=== PATIENT | female | born 1935 | race Caucasian/White ===

== ENCOUNTER 2017-12-29 20:32 | Inpatient (IN) | payer OTHER ==
[~2017-12-29] VITALS: Ht 160 cm; Wt 70.3 kg
[~2017-12-29 20:32] MED LIST: ATORVASTATIN CA40 M1 PO; JANUVIA100 M1 PO; LIPITOR20 M2 PO; METFORMIN HCL500 M4 PO; METOPROLOL SUCC25 M1 PO; TUMS200 MG PO; VITAMIN D2000 UNIT PO; ZANTAC150 M1 PO
[2017-12-29 21:51] LABS: ABSOLUTE BASOPHIL COUNT 0 /CUMM (0.0-0.2); ABSOLUTE EOSINOPHIL COUNT 0 /CUMM (0.0-0.7); ABSOLUTE GRANULOCYTE CT 8.2 /CUMM (1.4-6.5); ABSOLUTE MONOCYTE COUNT 0.6 /CUMM (0.10-0.60); BASOPHIL % 0.1 % (0.0-2.0); EOSINOPHIL % 0.1 % (0-5); GRANULOCYTE % 83.2 % (42.2-75.2); HEMATOCRIT 39.2 % (37-47); MEAN CORPUSCULAR HGB 30.5 PG (27.0-31.0); MEAN CORPUSCULAR HGB CONC 33.8 G/DL (33.0-37.0); MEAN CORPUSCULAR VOLUME 90.3 FL (81.0-99.0); MEAN PLATELET VOLUME 8.1 FL (7.4-10.4); PLATELET COUNT 181 /CUMM (130-400); RED BLOOD CELL CT 4.34 /CUMM (4.20-5.40); WHITE BLOOD CELL COUNT 9.9 /CUMM (4.8-10.8)
--- NOTE | 2017-12-29 22:00 | ED AMS/SEIZURE/WEAK/DIZZY ---
History of Present Illness General Chief Complaint: General Adult Stated Complaint: "FLUID IN LEGS,SHAKEY, WEAK" Source: patient, family Exam Limitations: no limitations Vital Signs & Intake/Output Vital Signs & Intake/Output Vital Signs Date Time Temp Pulse Resp B/P B/P Pulse O2 O2 Flow FiO2 Mean Ox Delivery Rate 01/01 0648 99.5 75 20 130/70 97 Room Air ED Intake and Output 01/02 0000 01/01 1200 Intake Total 390 Output Total Balance 390 Intake, IV 150 Intake, Oral 240 Patient 155 lb Weight Allergies Coded Allergies: Sulfa (Sulfonamide Antibiotics) (UNKNOWN PER PT 02/10/16) Triage Note: PT HERE WITH C/O DIFFICULTY WALKING X 1 WEEK. PT REPORTS INCREASED FLUIDS IN LEGS, LEFT LEG IS GREATER THAN RIGHT. PT DENIES HX OF CHF. Triage Nurses Notes Reviewed? yes Onset: Gradual Duration: week(s):, getting worse, waxing and waning Timing: recent history Injury Environment: home Severity: moderate Associated Symptoms: left leg swelling HPI: 82 yo woman lives in in-law apartment, presents with 2 weeks of weakness and difficulty ambulating. Her daughter shares, "She can walk alone, but needs a walker for safety, but she has been getting weaker over the past 2 weeks... Today, she couldn't walk 3 steps without becoming unsteady... it was dangerous.... We had to hold her on both sides." She notes that she is not eating as well. She notes also that both of her legs have been swollen, but the left is more swollen than the right. She has had no fever, chills, dysuria, chest pain, cough, dizziness. She is otherwise well. (Terry VITALE,Sandeep Werner) Reconcile Medications Apixaban (Eliquis) 5 MG TABLET 5 MG PO BID ANTICOAGULATION Take 10 mg twice a day for 7 days, 01/02-01/08 then switch to 5 mg twice a day. Atorvastatin Calcium 40 MG TABLET 1 TAB PO DAILY CHOLESTEROL (Reported) Metformin HCl (Metformin HCl ER) 500 MG TAB.ER.24H 1 TAB PO DAILY DIABETES ( Reported) Sitagliptin Phosphate (Januvia) 100 MG TABLET 1 TAB PO DAILY DIABETES ( Reported) (Elena VITALE,Elliot Jacobs) Past History Travel History Traveled to [place] past 21 day No Medical History Any Pertinent Medical History? see below for history Neurological: NONE EENT: NONE Cardiovascular: hypertension, hyperlipidemia Respiratory: NONE Gastrointestinal: GERD Hepatic: NONE Renal: urinary incontinence Musculoskeletal: NONE Psychiatric: NONE Endocrine: diabetes Blood Disorders: NONE Cancer(s): NONE TRANSPORTATION LEAD/Reproductive: NONE Tetanus Vaccine: 02/10/16 Surgical History Surgical History: non-contributory Psychosocial History Who do you live with Patient/Self What is your primary language Mexican Tobacco Use: Never used ETOH Use: denies use Illicit Drug Use: denies illicit drug use Family History Hx Contributory? No (Sandeep Stewart MD) Review of Systems Review of Systems Constitutional: Reports: no symptoms. EENTM: Reports: no symptoms. Respiratory: Reports: no symptoms. Cardiovascular: Reports: no symptoms. GI: Reports: no symptoms. Genitourinary: Reports: no symptoms. Musculoskeletal: Reports: no symptoms. Skin: Reports: no symptoms. Neurological/Psychological: Reports: no symptoms. Hematologic/Endocrine: Reports: no symptoms. Immunologic/Allergic: Reports: no symptoms. All Other Systems: Reviewed and Negative (Sandeep Stewart MD) Physical Exam Physical Exam General Appearance: no apparent distress, see below Comments: Physical Exam Physical Exam General Appearance: well developed/nourished, no apparent distress Head: atraumatic, normal appearance Eyes: Bilateral: normal appearance. Ears, Nose, Throat: normal pharynx, normal ENT inspection Neck: normal inspection, supple, full range of motion Respiratory: normal breath sounds, chest non-tender, no respiratory distress, quiet respiration, lungs clear Cardiovascular: regular rate/rhythm Gastrointestinal: normal bowel sounds, soft, non-tender, no organomegaly Back: normal inspection, normal range of motion Extremities: normal inspection, normal capillary refill, normal range of motion, left calf with 3-4+ edema, right calf with 3+ edema. pitting. non tender. Neurologic/Psych: no motor/sensory deficits, awake, alert, oriented x 3 Skin: intact, normal color, warm/dry Core Measures ACS in differential dx? No CVA/TIA Diagnosis No Sepsis Present: No Sepsis Focused Exam Completed? No (Terry VITALE,Sandeep Werner) Progress Differential Diagnosis: chf, dependent edema, dehydration vs other. Plan of Care: Orders Procedure Date/time Status PT Evaluate & Treat 01/01 UNK Active Therapeutic Activities 01/01 UNK Complete PT EVAL LOW COMPLEX 20 MIN 01/01 UNK Complete Gait Training 01/01 UNK Complete Discharge Patient 01/01 UNK Active Laboratory Tests 01/01/18 0715: APTT Cancelled 01/01/18 0715: Anion Gap 8, Estimated GFR 60, BUN/Creatinine Ratio 27.8 H, PT 11.4, INR 1.05, APTT 40 H, CBC w Diff NO MAN DIFF REQ, RBC 3.62 L, MCV 90.9, MCH 30.1, MCHC 33.2, RDW 14.5, MPV 8.4, Gran % 59.8, Lymphocytes % 26.0, Monocytes % 9.4 H, Eosinophils % 4.5, Basophils % 0.3, Absolute Granulocytes 3.6, Absolute Lymphocytes 1.6, Absolute Monocytes 0.6, Absolute Eosinophils 0.3, Absolute Basophils 0 01/01/18 0205: APTT 117 *H Diagnostic Imaging: Viewed by Me: Radiology Read. Discussed w/RAD: Radiology Read. CXR Impression: PATIENT: PASCUAL OLIVEROS PRESENT AGE: 82 PATIENT ACCOUNT NO: [id number] : 34 LOCATION: [facility] ORDERING PHYSICIAN: Sandeep Stewart MD SERVICE DATE: 12/29/17 EXAM TYPE: RAD - XRY-PORTABLE CHEST XRAY EXAMINATION: XR PORTABLE CHEST CLINICAL INFORMATION: Chest pain with dyspnea COMPARISON: February 10, 2016 TECHNIQUE: Portable frontal view of the chest was obtained. FINDINGS: There is mild cardiomegaly present but no evidence of CHF. The aorta is unfolded. No infiltrates, effusions, or lung masses are seen. IMPRESSION: Cardiomegaly without acute intrathoracic disease. DICTATED BY: Foreign Grayson MD DATE/TIME DICTATED:12/29/172237 CHIEF II DISPATCHER:JARROD DATE/TIME TRANSCRIBED:2237 CONFIDENTIAL, DO NOT COPY WITHOUT APPROPRIATE AUTHORIZATION. < Electronically signed in Other Vendor System> SIGNED BY: Foreign Grayson MD 12/29/172257 Initial ED EKG: sinus, no acute changes. (Terry VITALE,Sandeep Werner) Radiology Impression: PATIENT: PASCUAL OLIVEROS PRESENT AGE: 82 PATIENT ACCOUNT NO: [id number] : 34 LOCATION: [facility] ORDERING PHYSICIAN: Sandeep Stewart MD SERVICE DATE: 12/30/17 EXAM TYPE: US - US-EXT BILAT VENOUS DOPPLER EXAMINATION: BILATERAL LOWER EXTREMITY VENOUS ULTRASOUND CLINICAL INFORMATION: Left leg swelling, worse than right. DVT suspected. COMPARISON: Left lower extremity venous Doppler ultrasound dated 07/27/2016 and bilateral venous Doppler ultrasound dated 10/30/2012. TECHNIQUE: Doppler spectral analysis and color flow Doppler imaging was performed of the lower extremities. Compression and augmentation maneuvers were performed. FINDINGS: Left lower extremity: There is extensive deep venous thrombosis seen involving the veins of the entire left lower extremity with enlargement, noncompressibility, and no color Doppler flow visualized in the left common femoral vein, femoral vein, greater saphenous vein takeoff, upper profunda femoral vein, popliteal vein and trifurcation, and posterior tibial veins. The peroneal veins could not be visualized. Attempts at visualizing the left external iliac vein and the IVC were unsuccessful. No popliteal cyst is seen. Right lower extremity: The right common femoral vein, greater saphenous vein takeoff, femoral vein, and popliteal vein are normally compressible with normal augmentation responses and phasic changes seen with Doppler imaging. The midcalf peroneal and posterior tibial veins are patent as well. No popliteal cyst is seen. IMPRESSION: 1. Extensive deep venous thrombosis in the left lower extremity extending from the common femoral vein down to the calf veins. 2. No evidence of deep venous thrombosis in the right lower extremity. This critical result was discussed with Dr. Elliot Parker 12/30/2017, 8:23 AM and it was ascertained that the content and urgency of this report was understood at the time of direct communication. DICTATED BY: Selena Hyde MD DATE/TIME DICTATED:12/30/17816 CHIEF II DISPATCHER:JARROD DATE/TIME TRANSCRIBED:816 CONFIDENTIAL, DO NOT COPY WITHOUT APPROPRIATE AUTHORIZATION. < Electronically signed in Other Vendor System> SIGNED BY: Selena Hyde MD 12/30/17 0832 Comments: 12/30/2017 8:24:21 AM extensive dvt, no flow. couldnt visual ext iliac (? occluded) but doubts ivc involvement. 12/30/2017 9:19:25 AM patient's case discussed with Dr. Fernandez who is requesting vascular consult. 12/30/2017 10:23:40 AM patient's case discussed with Dr. Laboy who recommends IV heparin. (Elena VITALE,Elliot Jacobs) Departure Departure Disposition: STILL A PATIENT Condition: Stable Clinical Impression Primary Impression: Edema Secondary Impressions: Weakness Referrals: Romana VITALE,Shay Paris (PCP/Family) Departure Forms: Customer Survey General Discharge Information Comments pt to be signed out to dr. parker, 12/30/17, 7am, pending case management and PT evaluation. awaiting u/a results and dopper u/s to assess for DVT. (Terry VITALE,Sandeep Werner) Departure Prescriptions: Current Visit Scripts Apixaban (Eliquis) 5 MG PO BID #74 TAB Ref 2 Take 10 mg twice a day for 7 days, 01/02-01/08 then switch to 5 mg twice a day. Admission Note Spoke With: Héctor Fernandez MD Documentation of Exam: Documentation of any treatments & extenuating circumstances including Concerns Regarding Discharge (functional status, medication knowledge or non-compliance, living conditions, etc.) that warrant an admission rather than observation: Patient has an extensive lower extremity DVT that requires IV heparinization to prevent propagation or pulmonary embolism. Patient's vital signs and pulse ox should be monitored and O2 supplemented if necessary. The patient becomes tachycardic or drops her oxygen saturation pulmonary embolism should be considered. Vascular surgical consult should be considered for the appropriate management of the patient's extensive DVT. Physical therapy consultation should be considered to assess the patient's gait stability given her DVT. Considering this patient's advanced age and medical comorbidities it is likely her treatment and recovery will be prolonged and complicated. She will therefore require a multiple day hospitalization. (Elena VITALE,Elliot Jacobs) Critical Care Note Critical Care Note Critical Care Time: 30-74 min (Elliot Parker MD) N. 12/30/17 0832 Comments: 12/30/2017 8:24:21 AM extensive dvt, no flow. couldnt visual ext iliac (? occluded) but doubts ivc involvement. 12/30/2017 9:19:25 AM patient's case discussed with Dr. Fernandez who is requesting vascular consult. 12/30/2017 10:23:40 AM patient's case discussed with Dr. Laboy who recommends IV heparin. (Elliot Parker MD) Departure Departure Disposition: STILL A PATIENT Condition: Stable Clinical Impression Primary Impression: Edema Secondary Impressions: Weakness Referrals: Romana VITALE,Shay Paris (PCP/Family) Departure Forms: Customer Survey General Discharge Information Comments pt to be signed out to dr. parker, 12/30/17, 7am, pending case management and PT evaluation. awaiting u/a results and dopper u/s to assess for DVT. (Terry VITALE,Sandeep Werner)
--- NOTE | 2017-12-29 22:58 | RADIOLOGY REPORT ---
EXAMINATION: XR PORTABLE CHEST CLINICAL INFORMATION: Chest pain with dyspnea COMPARISON: February 10, 2016 TECHNIQUE: Portable frontal view of the chest was obtained. FINDINGS: There is mild cardiomegaly present but no evidence of CHF. The aorta is unfolded. No infiltrates, effusions, or lung masses are seen. IMPRESSION: Cardiomegaly without acute intrathoracic disease.
--- NOTE | 2017-12-30 08:32 | ULTRASOUND REPORT ---
EXAMINATION: BILATERAL LOWER EXTREMITY VENOUS ULTRASOUND CLINICAL INFORMATION: Left leg swelling, worse than right. DVT suspected. COMPARISON: Left lower extremity venous Doppler ultrasound dated 07/27/2016 and bilateral venous Doppler ultrasound dated 10/30/2012. TECHNIQUE: Doppler spectral analysis and color flow Doppler imaging was performed of the lower extremities. Compression and augmentation maneuvers were performed. FINDINGS: Left lower extremity: There is extensive deep venous thrombosis seen involving the veins of the entire left lower extremity with enlargement, noncompressibility, and no color Doppler flow visualized in the left common femoral vein, femoral vein, greater saphenous vein takeoff, upper profunda femoral vein, popliteal vein and trifurcation, and posterior tibial veins. The peroneal veins could not be visualized. Attempts at visualizing the left external iliac vein and the IVC were unsuccessful. No popliteal cyst is seen. Right lower extremity: The right common femoral vein, greater saphenous vein takeoff, femoral vein, and popliteal vein are normally compressible with normal augmentation responses and phasic changes seen with Doppler imaging. The midcalf peroneal and posterior tibial veins are patent as well. No popliteal cyst is seen. IMPRESSION: 1. Extensive deep venous thrombosis in the left lower extremity extending from the common femoral vein down to the calf veins. 2. No evidence of deep venous thrombosis in the right lower extremity. This critical result was discussed with Dr. Elliot Parker 12/30/2017, 8:23 AM and it was ascertained that the content and urgency of this report was understood at the time of direct communication.
--- NOTE | 2017-12-30 10:50 | History & Physical ---
NilsonxiKiley 12/30/17 1050: General Information and HPI MD Statement: I have seen and personally examined PASCUAL OLIVEROS and documented this H&P. The patient is a 82 year old F who presented with a patient stated chief complaint of [left lower extremity swelling]. Source of Information: patient, old records Exam Limitations: no limitations History of Present Illness: 82-year-old pleasant woman from home, past medical history significant for non- insulin-dependent diabetes mellitus, hyperlipidemia, brought in by daughter for evaluation of left lower extremity swelling and inability to ambulate. Patient states that since the past 1 months she has been noticing worsening lower extremity swelling which has caused her to become essentially bedbound. Prior to a month ago she was able to ambulate to the bathroom however since she has become bedbound she has been using depends purely because she is unable to ambulate. She denies any shortness of breath, chest pain, palpitations, dysuria, fever, chills, abdominal pain. She does states that she is able to control her bowel and bladder, denies decreased p.o. intake poor appetite, history of prior clots in the past or family history of clots. Allergies/Medications Allergies: Coded Allergies: Sulfa (Sulfonamide Antibiotics) (UNKNOWN PER PT 02/10/16) Home Med list Atorvastatin Calcium 40 MG TABLET 1 TAB PO DAILY CHOLESTEROL (Reported) Metformin HCl (Metformin HCl ER) 500 MG TAB.ER.24H 1 TAB PO DAILY DIABETES ( Reported) Sitagliptin Phosphate (Januvia) 100 MG TABLET 1 TAB PO DAILY DIABETES ( Reported) Compliance With Home Meds: GOOD Past History Travel History Traveled to [place] past 21 day No Medical History Neurological: NONE EENT: NONE Cardiovascular: hypertension, hyperlipidemia Respiratory: NONE Gastrointestinal: GERD Hepatic: NONE Renal: urinary incontinence Musculoskeletal: NONE Psychiatric: NONE Endocrine: diabetes Blood Disorders: NONE Cancer(s): NONE PHYSICAL THERAPY SUPERVISOR/Reproductive: NONE Tetanus Vaccine: 02/10/16 Surgical History Surgical History: non-contributory Past Family/Social History Family History Relations & Conditions if any Relation not specified for: *No pertinent family history Psychosocial History ETOH Use: denies use Illicit Drug Use: denies illicit drug use Review of Systems Review of Systems Constitutional: Reports: see HPI. Exam & Diagnostic Data Last 24 Hrs of Vital Signs/I&O Vital Signs Date Time Temp Pulse Resp B/P B/P Pulse O2 O2 Flow FiO2 Mean Ox Delivery Rate 12/30 1246 98.2 90 20 122/70 99 Room Air 12/30 1107 98.5 85 18 119/67 99 Room Air 12/30 0912 97.0 89 20 119/67 100 Room Air 12/30 0633 98.4 85 18 130/63 96 12/30 0351 98.2 77 20 129/64 97 Room Air 12/29 2309 98.1 72 16 138/68 96 Room Air 12/29 2042 96.7 84 20 132/82 96 Room Air Intake & Output 12/30 1600 12/30 0800 12/30 0000 Intake Total 500 Output Total 625 Balance -125 Intake, IV 500 Number 2 Bowel Movements Output, Urine 625 Patient 149 lb 149 lb Weight Weight Reported by Patient Reported by Patient Measurement Method Physical Exam General Appearance Alert, Oriented X3, Cooperative, No Acute Distress HEENT Atraumatic, PERRLA, EOMI, Mucous Membr. moist/pink Neck Supple Lymphatic Cervical nl Cardiovascular Regular Rate, Normal S1, Normal S2 Lungs Clear to Auscultation, Normal Air Movement Abdomen Normal Bowel Sounds, Soft, No Tenderness Extremities Normal Pulses, left lower extremity non-pitting edema upto thighs Vascular Pulses Symmetrical Diagnostic Data EKG Results Normal sinus with T-wave inversions in lead I, 2 V2 to V6 which is similar to her prior EKG CXR Results SERVICE DATE: 12/29/17 EXAM TYPE: RAD - XRY-PORTABLE CHEST XRAY FINDINGS: There is mild cardiomegaly present but no evidence of CHF. The aorta is unfolded. No infiltrates, effusions, or lung masses are seen. IMPRESSION: Cardiomegaly without acute intrathoracic disease. Other Results US-EXT BILAT VENOUS DOPPLER FINDINGS: Left lower extremity: There is extensive deep venous thrombosis seen involving the veins of the entire left lower extremity with enlargement, noncompressibility, and no color Doppler flow visualized in the left common femoral vein, femoral vein, greater saphenous vein takeoff, upper profunda femoral vein, popliteal vein and trifurcation, and posterior tibial veins. The peroneal veins could not be visualized. Attempts at visualizing the left external iliac vein and the IVC were unsuccessful. No popliteal cyst is seen. Right lower extremity: The right common femoral vein, greater saphenous vein takeoff, femoral vein, and popliteal vein are normally compressible with normal augmentation responses and phasic changes seen with Doppler imaging. The midcalf peroneal and posterior tibial veins are patent as well. No popliteal cyst is seen. IMPRESSION: 1. Extensive deep venous thrombosis in the left lower extremity extending from the common femoral vein down to the calf veins. 2. No evidence of deep venous thrombosis in the right lower extremity. Assessment/Plan Assessment: 82-year-old pleasant woman from home, past medical history significant for non- insulin-dependent diabetes mellitus, hyperlipidemia, brought in by daughter for evaluation of left lower extremity swelling and inability to ambulate. On admission labs significant for hyperkalemia of 5.2, imaging found to have extensive left lower extremity DVT involving the iliofemoral segment. The common femoral vein is also thrombosed. The right side is patent. Problem list Left lower extremity DVT-likely unprovoked Non-insulin diabetes mellitus Hypokalemia Hypertension Plan Admit to general medicine floor Vitals per protocol Patient started on IV heparin in ED, if unprovoked and she will need 3 months of anticoagulation Vascular consult placed Low suspicion for PE at this time as she is not febrile, tachycardic, no symptoms i.e. shortness of breath pleuritic chest pain cough Accu-Cheks, insulin sliding scale, hold oral hypoglycemics She is currently afebrile with no leukocytosis and no history of dysuria will hold off on antibiotics for now, follow-up urine culture Continue home meds of statin DVT prophylaxis IV heparin Diabetic diet DNR/DNI As Ranked By This Provider Problem List: 1. Dvt femoral (deep venous thrombosis) Core Measures/Misc (03/03) Acute Coronary Syndrome ACS Diagnosis: No Congestive Heart Failure Congestive Heart Failure Diagnosis No Cerebrovascular Accident CVA/TIA Diagnosis: No VTE (View Protocol) VTE Risk Factors Immobility No Mechanical VTE Prophylaxis d/t Physical Contraindication No VTE Pharm Prophylaxis d/t NA PharmProphylax ordered Comment: dvt confirmed Sepsis (View protocol) Sepsis Present: No If YES complete Sepsis Event Note If YES complete Sepsis Event Note Everardo Hoover 12/30/17 1357: Core Measures/Misc (03/03) Sepsis (View protocol) If YES complete Sepsis Event Note If YES complete Sepsis Event Note Attending MD Review Statement Attending Statement Attending MD Statement: examined this patient, discuss w/resident/PA/FLIGHT CONTROL MANAGER, agreed w/resident/PA/FLIGHT CONTROL MANAGER, discussed with family, reviewed EMR data (avail), discussed with nursing, discussed with case mgmt, reviewed images, amended to note Attending Assessment/Plan: Patient admiited here for extensive Lower extremity DVT with pain and diffciulty to ambulate. Started on iv heparin and vascular surgery conuslt. Provide pain control. Hold oral hypoglycemics and RISS and titrate insulin as needed. gi/dvt prophyalxis
[2017-12-30 11:44] LABS: PTT > 120 SEC (25-37)
[2017-12-30 12:46] VITALS: BP 122/70
--- NOTE | 2017-12-30 14:07 | Cons- Vascular Surgery ---
General Information and HPI Consulting Request Date of Consult: 12/30/17 Requested By: Everardo Hoover MD Reason for Consult: EXT LLE DVT Source of Information: patient Exam Limitations: no limitations History of Present Illness: THIS IS A PLEASANT 82YO F WITH HX OF DM, HLD, AND HTN THAT LIVES IN AN [facility]. she PRESENTS WITH COMPLAINTS OF GENERALIZED WEAKNESS and swelling in LLE. PT HAD AN ULRASOUND DVT STUDY IN THE ED AND WAS FOUND TO HAVE EXTENSIVE THROMBUS IN THE LLE INVOLVING ANGIE COMMON FEMORAL VEIN AND EXTENDING DOWN DISTALY INTO THE CALF VEINS. SHE DENEIS CP AND SHORTNESS OF BREATH. PT STATES THAT SHE DID HAD A MILD URI SEVERAL DAYS AGO. SHE NOTES DECREASED APPETITE FOR SEVERAL DAYS. PT HAS URINARY INCONTINENCE AND SOME RECENT FECAL INCONTINENCE Allergies/Medications Allergies: Coded Allergies: Sulfa (Sulfonamide Antibiotics) (UNKNOWN PER PT 02/10/16) Home Med List: Atorvastatin Calcium 40 MG TABLET 1 TAB PO DAILY CHOLESTEROL (Reported) Metformin HCl (Metformin HCl ER) 500 MG TAB.ER.24H 1 TAB PO DAILY DIABETES ( Reported) Sitagliptin Phosphate (Januvia) 100 MG TABLET 1 TAB PO DAILY DIABETES ( Reported) Past History Medical History Blood Transfusion Hx: No Neurological: NONE EENT: NONE Cardiovascular: hypertension, hyperlipidemia Respiratory: NONE Gastrointestinal: GERD Hepatic: NONE Renal: urinary incontinence Musculoskeletal: NONE Psychiatric: NONE Endocrine: diabetes Blood Disorders: NONE Cancer(s): NONE IT ENGINEER/Reproductive: NONE Surgical History Pertinent Surgical History: hysterectomy Psychosocial History Where Do You Live? Home Smoking Status: Former Smoker ETOH Use: denies use Illicit Drug Use: denies illicit drug use Review of Systems Review of Systems: PER HPI Exam & Diagnostic Data Vital Signs and I&O Vital Signs Date Time Temp Pulse Resp B/P B/P Pulse O2 O2 Flow FiO2 Mean Ox Delivery Rate 12/30 1246 98.2 90 20 122/70 99 Room Air 12/30 1107 98.5 85 18 119/67 99 Room Air 12/30 0912 97.0 89 20 119/67 100 Room Air 12/30 0633 98.4 85 18 130/63 96 12/30 0351 98.2 77 20 129/64 97 Room Air 12/29 2309 98.1 72 16 138/68 96 Room Air 12/29 2042 96.7 84 20 132/82 96 Room Air Intake & Output 07/12/30 0800 12/30 0000 12/29 1600 12/29 0800 12/29 0000 Intake Total 500 Output Total 425 Balance 75 Intake, IV 500 Output, Urine 425 Patient 149 lb 149 lb Weight Weight Reported by Patient Reported by Patient Measurement Method Physical Exam: GEN- NAD, RESTING COMFORABLY IN BED EATING LUNCH RESP-CLEAR CARDIAC-RRR ABD-SOFT, NT EXT- LEFT LEG SIGNIFICANTLY LARGER THAT THE RIGHT WITH GENERALIZED ERYTHEMA AND EDEMA, NO CALF TENDERNESS, NO ROPES PALPATED. DISTAL SENSORY AND MOTOR FUNCTION INTACT. 1+DP PULSE BILATERALLY Last 24 Hours of Labs: Laboratory Tests 12/30 12/30 1107 0703 Coagulation APTT (25 - 37 SEC) > 120 *H Urines Urinalysis LIGHT H Urine Color (YEL,AMB,STR) YEL Urine Clarity (CLEAR) HAZY H Urine pH (5.0 - 8.0) 6.0 Ur Specific [place] (1.001 - 1.035) >= 1.030 Urine Protein (NEG,<30 MG/DL) 30 H Urine Ketones (NEG) NEG Urine Nitrite (NEG) POS H Urine Bilirubin (NEG) NEG Urine Urobilinogen (0.1 - 1.0 EU/dl) 0.2 Ur Leukocyte Esterase (NEG) SMALL H Ur Microscopic SEDIMENT EXAMINED Urine RBC (0 - 5 /HPF) 1-3 Urine WBC (0 - 2 /HPF) > 75 H Ur Epithelial Cells (NONE,FEW) MANY H Urine Bacteria (NEG/NONE) PACKD H Urine Hemoglobin (NEG) TRACE-INTACT Urine Glucose (N MG/DL) >=1000 H 12/29 2135 Chemistry Sodium (137 - 145 mmol/L) 137 Potassium (3.5 - 5.1 mmol/L) 5.2 H Chloride (98 - 107 mmol/L) 97 L Carbon Dioxide (22 - 30 mmol/L) 27 Anion Gap (5 - 16) 13 BUN (7 - 17 mg/dL) 20 H Creatinine (0.5 - 1.0 mg/dL) 1.0 Estimated GFR (>60 ml/min) 53 L BUN/Creatinine Ratio (7 - 25 %) 20.0 Glucose (65 - 99 mg/dL) 366 H Calcium (8.4 - 10.2 mg/dL) 9.7 Total Bilirubin (0.2 - 1.3 mg/dL) 1.1 Direct Bilirubin (< 0.4 mg/dL) 0.2 AST (14 - 36 U/L) 30 ALT (9 - 52 U/L) 37 Alkaline Phosphatase (<127 U/L) 74 Troponin I (< 0.11 ng/ml) 0.02 Fld-Z-Zkxpwcdeqcy Pept (<125 pg/mL) 1000 H Total Protein (6.3 - 8.2 g/dL) 7.6 Albumin (3.5 - 5.0 g/dL) 4.5 Amylase (30 - 110 U/L) 35 Lipase (23 - 300 U/L) 103 Hematology CBC w Diff NO MAN DIFF REQ WBC (4.8 - 10.8 /CUMM) 9.9 RBC (4.20 - 5.40 /CUMM) 4.34 Hgb (12.0 - 16.0 G/DL) 13.2 Hct (37 - 47 %) 39.2 MCV (81.0 - 99.0 FL) 90.3 MCH (27.0 - 31.0 PG) 30.5 MCHC (33.0 - 37.0 G/DL) 33.8 RDW (11.5 - 14.5 %) 15.0 H Plt Count (130 - 400 /CUMM) 181 MPV (7.4 - 10.4 FL) 8.1 Gran % (42.2 - 75.2 %) 83.2 H Lymphocytes % (20.5 - 51.1 %) 10.5 L Monocytes % (1.7 - 9.3 %) 6.1 Eosinophils % (0 - 5 %) 0.1 Basophils % (0.0 - 2.0 %) 0.1 Absolute Granulocytes (1.4 - 6.5 /CUMM) 8.2 H Absolute Lymphocytes (1.2 - 3.4 /CUMM) 1.0 L Absolute Monocytes (0.10 - 0.60 /CUMM) 0.6 Absolute Eosinophils (0.0 - 0.7 /CUMM) 0 Absolute Basophils (0.0 - 0.2 /CUMM) 0 Imaging Results: EXAM TYPE: US - US-EXT BILAT VENOUS DOPPLER EXAMINATION: BILATERAL LOWER EXTREMITY VENOUS ULTRASOUND CLINICAL INFORMATION: Left leg swelling, worse than right. DVT suspected. COMPARISON: Left lower extremity venous Doppler ultrasound dated 07/27/2016 and bilateral venous Doppler ultrasound dated 10/30/2012. TECHNIQUE: Doppler spectral analysis and color flow Doppler imaging was performed of the lower extremities. Compression and augmentation maneuvers were performed. FINDINGS: Left lower extremity: There is extensive deep venous thrombosis seen involving the veins of the entire left lower extremity with enlargement, noncompressibility, and no color Doppler flow visualized in the left common femoral vein, femoral vein, greater saphenous vein takeoff, upper profunda femoral vein, popliteal vein and trifurcation, and posterior tibial veins. The peroneal veins could not be visualized. Attempts at visualizing the left external iliac vein and the IVC were unsuccessful. No popliteal cyst is seen. Right lower extremity: The right common femoral vein, greater saphenous vein takeoff, femoral vein, and popliteal vein are normally compressible with normal augmentation responses and phasic changes seen with Doppler imaging. The midcalf peroneal and posterior tibial veins are patent as well. No popliteal cyst is seen. IMPRESSION: 1. Extensive deep venous thrombosis in the left lower extremity extending from the common femoral vein down to the calf veins. 2. No evidence of deep venous thrombosis in the right lower extremity. This critical result was discussed with Dr. Elliot Parker 12/30/2017, 8:23 AM and it was ascertained that the content and urgency of this report was understood at the time of direct communication. DICTATED BY: Mary Ellen VITALE,Selena Grullon DATE/TIME DICTATED:12/30/17816 [employer] SQL DEVELOPER:JARROD DATE/TIME TRANSCRIBED:12/30/17816 Assessment/Plan Assessment/Plan 82YO DIABETIC F HERE WITH EXTENSIVE LEFT LOWER EXTREMITY DVT AND UTI. STABLE SPOKE TO DR. NOONAN ON THE PHONE WHO RECOMMENDED STARTING THE PT ON A HEPARIN DRIP. HE SPOKE TO DR RAGLAND WHO WILL TO SEE THE PATIENT LATER TODAY REC ABX FOR UTI PT IS EXPERIENCING WEAKNESS AND DECREASED APPETITE AND HAS A LEFT SHIFT ON CBC VASCULAR SURGERY WILL FOLLOW PT MAY REQUIRE FURTHER INTERVENTION SUCH THROMBOLYSIS. Consult Acknowledgment - Thank you for your consult request.
--- NOTE | 2017-12-30 14:31 | PN- Vascular Surgery ---
Surgical Brief Attending Note Brief Attending Note: VASCULAR ATTENDING NOTE: Agree with PA note from today. Briefly, 82-year-old diabetic female (DNR/DNI) who was in her usual state of health until approximately one week ago when she began to have left lower extremity swelling. She was advised by her daughter to rest and has noted over the past week that the swelling has been worsening. States his swelling is worse at the end of the day and when she is moving. She denies any history of claudication or rest pain. She has not had any recent surgery or change in ambulatory status. Physical exam reveals a female who looks her stated age. She is in no apparent distress. By lower extremity does demonstrate significant swelling. There is 2+ edema extends from the ankle up past the knee into the proximal thigh. There is no evidence of phlegmasia. There is no evidence of limb ischemia. Her venous ultrasound was reviewed. This demonstrates extensive left lower extremity DVT involving the iliofemoral segment. The common femoral vein is also thrombosed. The right side is patent. Our assessment is that this is an 82-year-old female with an unprovoked DVT. 1.) Recommend anticoagulation at this time with heparin and likely conversion either to an oral anticoagulant. 2.) Recommend hematology consult as patient may benefit from a malignancy workup 3.) Recommend compression therapy and elevation. Would recommend an Jerome wrap at this time from the foot to the upper thigh above the knee. Patient should be discharged with compression stockings. 4.) Due to advanced age patient is not an ideal candidate for thrombolytic therapy--would plan on a period of observation to see if she improves with anticoagulation and appropriate compression 5.) Continue medical therapy as per primary team
[2017-12-30 19:41] LABS: PTT 116 SEC (25-37)
[2017-12-30 22:12] VITALS: BP 118/66
[2017-12-31 06:58] VITALS: BP 142/78
--- NOTE | 2017-12-31 07:16 | PN- Housestaff ---
Marcelo Botello 12/31/17 0715: Subjective Follow-up For: Left lower extremity swelling and pain Complaints: no complaints Subjective: Was seen and examined at the bedside. Patient denies any complaints overnight, and desires to go home as soon as possible. Review of Systems Constitutional: Reports: no symptoms. Objective Last 24 Hrs of Vital Signs/I&O Vital Signs Date Time Temp Pulse Resp B/P B/P Pulse O2 O2 Flow FiO2 Mean Ox Delivery Rate 12/31 1458 98.1 84 22 134/72 95 Nasal Cannula 12/31 0658 99.1 86 20 142/78 96 Room Air 12/30 2212 98.3 86 20 118/66 98 Room Air Intake & Output 12/31 1600 12/31 0800 12/31 0000 Intake Total 1058.8 0 Output Total Balance 1058.8 0 Intake, IV 108.8 Intake, Oral 950 0 Number 0 0 Bowel Movements Patient 152 lb Weight Physical Exam General Appearance: Alert, Oriented X3, Cooperative, No Acute Distress Skin: No Rashes, No Breakdown Skin Temp/Moisture Exam: Warm/Dry HEENT: Atraumatic, PERRLA, EOMI Neck: Supple, No JVD, No thryomegaly Cardiovascular: Regular Rate, Normal S1, Normal S2, No Murmurs Lungs: Clear to Auscultation, Normal Air Movement Abdomen: Soft, No Tenderness, No Hepatospenomegaly Neurological: Normal Speech, Strength at 5/5 X4 Ext, Normal Tone, Sensation Intact Extremities: No Clubbing, No Cyanosis, left lower extremity wrapped in chino bandage, still somewhat swollen Current Medications: Current Medications Sig/Jourdan Start time Last Medication Dose Route Stop Time Status Admin Acetaminophen 650 MG Q6 12/30 1800 DC PO Apixaban 10 MG BID 01/01 0900 AC PO Atorvastatin Calcium 40 MG DAILY 12/30 0900 AC 12/31 PO 0820 Ceftriaxone Sodium 1,000 MG 1700 12/30 1700 DC 12/30 IV 1818 Cephalexin 500 MG 0600,1800 12/31 1800 AC 12/31 PO 01/02 0601 1729 Cephalexin 500 MG 0500,1700 12/31 1700 DC PO 01/02 0501 Heparin Sodium 25,000 UNIT Q24H 12/30 1030 AC 12/31 (Porcine) IV 01/01 0900 1154 Sodium Chloride 500 ML Insulin Aspart 0 TIDAC 12/30 1345 AC 12/31 SC 1729 Patient Medication 1 ED ONE ONE 12/31 1715 DC 12/31 Teaching ED 12/31 1716 1729 Senna 187 MG AT BEDTIME 12/30 2100 AC PO Last 24 Hrs of Lab/Juan Results Last 24 Hrs of Labs/Mics: Laboratory Tests 12/31/17 0636: Anion Gap 12, Estimated GFR 47 L, BUN/Creatinine Ratio 26.4 H, APTT 84 H, CBC w Diff NO MAN DIFF REQ, RBC 4.15 L, MCV 91.6, MCH 30.4, MCHC 33.2, RDW 14.9 H, MPV 8.4, Gran % 74.0, Lymphocytes % 16.7 L, Monocytes % 7.3, Eosinophils % 1.8, Basophils % 0.2, Absolute Granulocytes 6.5, Absolute Lymphocytes 1.5, Absolute Monocytes 0.6, Absolute Eosinophils 0.2, Absolute Basophils 0 12/30/17 2130: 12/30/17 1850: APTT 116 *H Assessment/Plan Assessment: 82-year-old pleasant woman from home, past medical history significant for non- insulin-dependent diabetes mellitus, hyperlipidemia, brought in by daughter for evaluation of left lower extremity swelling and inability to ambulate. Problem list/plan: Left lower extremity DVTlikely unprovoked anticoagulation intrathoracic disease Diabetes Hypertension DVT prophylaxis: IV heparin Diabetic diet consistent carbohydrate 3 Patient is DNR/DNI Problem List: 1. Dvt femoral (deep venous thrombosis) 2. Weakness Pain Ratin Pain Location: none, not even left lower extremity Pain Goal: Remain pain free Pain Plan: acetaminophen, subsequently discharged as patient was not taking Tomorrow's Labs & Rationales: CBC, BEP, PTT, INR Everardo Hoover 12/31/17 1258: Attending MD Review Statement Attending Statement Attending MD Statement: examined this patient, discuss w/resident/PA/FRAME STYLIST, agreed w/resident/PA/FRAME STYLIST, discussed with family, reviewed EMR data (avail), discussed with nursing, discussed with case mgmt, reviewed images, amended to note Attending Assessment/Plan: Patient admiited here for extensive Lower extremity DVT with diffciulty to ambulate. Her UA is abnormal with positive nitrites and LE and bacteria. Today she tells family histroy of cancer present No complaints overnight. Continue iv heparin and vascular surgery conuslted which recommend to continue with anticoaguation. Not candidate of surgery and thrombolytics. Obtain Hematology/oncology consult. DM: Held oral hypoglycemics and RISS and titrate insulin as needed. Continue with compression stockings. OOb to chair gi/dvt prophyalxis
[2017-12-31 07:46] LABS: ABSOLUTE BASOPHIL COUNT 0 /CUMM (0.0-0.2); ABSOLUTE EOSINOPHIL COUNT 0.2 /CUMM (0.0-0.7); ABSOLUTE GRANULOCYTE CT 6.5 /CUMM (1.4-6.5); ABSOLUTE LYMPH COUNT 1.5 /CUMM (1.2-3.4); ABSOLUTE MONOCYTE COUNT 0.6 /CUMM (0.10-0.60); BASOPHIL % 0.2 % (0.0-2.0); EOSINOPHIL % 1.8 % (0-5); MEAN CORPUSCULAR HGB 30.4 PG (27.0-31.0); MEAN CORPUSCULAR HGB CONC 33.2 G/DL (33.0-37.0); MEAN CORPUSCULAR VOLUME 91.6 FL (81.0-99.0); MEAN PLATELET VOLUME 8.4 FL (7.4-10.4); PLATELET COUNT 185 /CUMM (130-400); RBC DISTRIBUTION WIDTH 14.9 % (11.5-14.5); RED BLOOD CELL CT 4.15 /CUMM (4.20-5.40); WHITE BLOOD CELL COUNT 8.8 /CUMM (4.8-10.8)
[2017-12-31 08:20] LABS: PTT 84 SEC (25-37)
[2017-12-31 14:58] VITALS: BP 134/72
[2017-12-31 20:01] LABS: PTT 49 SEC (25-37)
[2017-12-31 22:32] VITALS: BP 128/70
[2018-01-01 03:11] LABS: PTT 117 SEC (25-37)
[2018-01-01 06:48] VITALS: BP 130/70
--- NOTE | 2018-01-01 07:05 | PN- Housestaff ---
Marcelo Botello 01/01/18 0705: Subjective Follow-up For: Unprovoked DVT Complaints: no complaints Subjective: Patient was seen and examined at the bedside. Stated she had a restful night. Denies any pain or discomfort, SOB, or chest pain. Anticipating discharge today and excited about it. Review of Systems Constitutional: Reports: no symptoms. Cardiovascular: Reports: no symptoms. Respiratory: Reports: no symptoms. Gastrointestinal: Reports: no symptoms. Musculoskeletal: Reports: no symptoms. Skin: Reports: no symptoms. Objective Last 24 Hrs of Vital Signs/I&O Vital Signs Date Time Temp Pulse Resp B/P B/P Pulse O2 O2 Flow FiO2 Mean Ox Delivery Rate 01/01 0648 99.5 75 20 130/70 97 Room Air 12/31 2232 98.3 82 21 128/70 98 Room Air Intake & Output 01/01 1600 01/01 0800 01/01 0000 Intake Total 390 250 Output Total Balance 390 250 Intake, IV 150 10 Intake, Oral 240 240 Patient 155 lb Weight Physical Exam General Appearance: Alert, Oriented X3, Cooperative, No Acute Distress Skin: No Rashes, No Breakdown Skin Temp/Moisture Exam: Warm/Dry HEENT: Atraumatic, PERRLA, EOMI Neck: Supple, No JVD, No thryomegaly Cardiovascular: Regular Rate, Normal S1, Normal S2, No Murmurs Lungs: Clear to Auscultation, Normal Air Movement Abdomen: Normal Bowel Sounds, Soft, No Tenderness, No Hepatospenomegaly Neurological: Normal Gait (assessed by pt), Normal Speech, Strength at 5/5 X4 Ext, Normal Tone, Sensation Intact Extremities: No Clubbing, No Cyanosis, mild swelling above baseline; improved since yesterday Vascular: Normal Pulses, Pulses Symmetrical Current Medications: Current Medications Sig/Jourdan Start time Last Medication Dose Route Stop Time Status Admin Apixaban 10 MG BID 01/01 0900 DCD 01/01 PO 0844 Atorvastatin Calcium 40 MG DAILY 12/30 0900 DCD 01/01 PO 0844 Cephalexin 500 MG 0600,1800 12/31 1800 DCD 01/01 PO 01/02 0601 0614 Cephalexin 500 MG 0500,1700 12/31 1700 DC PO 01/02 0501 Heparin Sodium 5,000 UNIT .STK-MED ONE 12/31 2026 DC (Porcine) IV 01/01 2028 Heparin Sodium 2,800 UNIT 12/31 2020 DC 12/31 (Porcine) IV 12/31 Heparin Sodium 25,000 UNIT Q24H 12/30 1030 DC 12/31 (Porcine) IV 01/01 Sodium Chloride 500 ML Insulin Aspart 0 TIDAC 12/30 1345 DCD 01/01 SC 1214 Melatonin 5 MG ONCE ONE 01/01 0100 DC 01/01 PO 01/01 0101 0234 Patient Medication 1 ED ONE ONE 12/31 1715 DC 12/31 Teaching ED 12/31 171 1729 Senna 187 MG AT BEDTIME 12/30 2100 DCD PO Last 24 Hrs of Lab/Juan Results Last 24 Hrs of Labs/Mics: Laboratory Tests 01/01/18 0715: Anion Gap 8, Estimated GFR 60, BUN/Creatinine Ratio 27.8 H, PT 11.4, INR 1.05, APTT 40 H, CBC w Diff NO MAN DIFF REQ, RBC 3.62 L, MCV 90.9, MCH 30.1, MCHC 33.2, RDW 14.5, MPV 8.4, Gran % 59.8, Lymphocytes % 26.0, Monocytes % 9.4 H, Eosinophils % 4.5, Basophils % 0.3, Absolute Granulocytes 3.6, Absolute Lymphocytes 1.6, Absolute Monocytes 0.6, Absolute Eosinophils 0.3, Absolute Basophils 0 01/01/18 0205: APTT 117 *H 12/31/17 1855: APTT 49 H Assessment/Plan Assessment: 82-year-old pleasant woman from home, past medical history significant for non- insulin-dependent diabetes mellitus, hyperlipidemia, brought in by daughter for evaluation of left lower extremity swelling and inability to ambulate. Problem list/plan: Left lower extremity DVTlikely unprovoked -Converted now to [facility] for outpatient, planned 3 months duration intrathoracic disease Diabetes Hypertension DVT prophylaxis: IV heparin Diabetic diet consistent carbohydrate 3 Patient is DNR/DNI Discharge today Problem List: 1. Dvt femoral (deep venous thrombosis) Pain Ratin Pain Location: none Pain Goal: Remain pain free Pain Plan: none Tomorrow's Labs & Rationales: none, discharged Discharge Plan Discharge Disposition: home Stable for Discharge? Yes Anticipated Discharge (Day): today Everardo Hoover 01/01/18 1156: Attending MD Review Statement Attending Statement Attending MD Statement: examined this patient, discuss w/resident/PA/PLASMA CENTER NURSE, agreed w/resident/PA/PLASMA CENTER NURSE, discussed with family, reviewed EMR data (avail), discussed with nursing, discussed with case mgmt, reviewed images, amended to note Attending Assessment/Plan: Patient admiited here for extensive Lower extremity DVT with diffciulty to ambulate. Her UA is abnormal with positive nitrites and LE and bacteria. Pateint feels clinically imporved since admission. No complaints overnight. vascular surgery conuslted which recommend to continue with anticoaguation. Not candidate of surgery and thrombolytics. Referal outpateint Hematology/oncology Dr Hurley informed. Eliquis started. DM: Held oral hypoglycemics and RISS and titrate insulin as needed. Continue with compression stockings. OOb to chair. Might benefit from HHS at discharge. FOLLOW UP PCP in 1 week Hematology/oncology in 1-2 weeks of discharge Use of anticougalants and risks/benefits discussed with family. Family in agreement. In case her symptoms worsen she can call 911 or come to ER immediately.
[2018-01-01 08:23] LABS: PT 11.4 SEC (9.4-12.5); PTT 40 SEC (25-37)
[2018-01-01 08:28] LABS: ABSOLUTE BASOPHIL COUNT 0 /CUMM (0.0-0.2); ABSOLUTE EOSINOPHIL COUNT 0.3 /CUMM (0.0-0.7); ABSOLUTE GRANULOCYTE CT 3.6 /CUMM (1.4-6.5); ABSOLUTE LYMPH COUNT 1.6 /CUMM (1.2-3.4); ABSOLUTE MONOCYTE COUNT 0.6 /CUMM (0.10-0.60); BASOPHIL % 0.3 % (0.0-2.0); EOSINOPHIL % 4.5 % (0-5); GRANULOCYTE % 59.8 % (42.2-75.2); MEAN CORPUSCULAR HGB 30.1 PG (27.0-31.0); MEAN CORPUSCULAR HGB CONC 33.2 G/DL (33.0-37.0); MEAN CORPUSCULAR VOLUME 90.9 FL (81.0-99.0); MEAN PLATELET VOLUME 8.4 FL (7.4-10.4); PLATELET COUNT 180 /CUMM (130-400); RBC DISTRIBUTION WIDTH 14.5 % (11.5-14.5); RED BLOOD CELL CT 3.62 /CUMM (4.20-5.40); WHITE BLOOD CELL COUNT 6.1 /CUMM (4.8-10.8)
[2018-01-01 09:09] LABS: HEMATOCRIT 32.9 % (37-47)
[2018-01-01] MEDS ORDERED: ELIQUIS5 M1 PO ×2 (09:56→11:26)
--- NOTE | 2018-01-01 22:48 | Discharge Summary ---
Visit Information Visit Dates Admission Date: 12/30/17 Discharge Date: 01/01/18 Hospital Course Course Attending Physician: Kiko VITALE,Everardo Primary Care Physician: Romana VITALE,Shay Paris Consulting Request: 1 Consulting Specialty: Thoracic/Vascular Surgery Consulting Physician: Richard VITALE, Yudelka Pederson Consulting Request: 2 Consulting Specialty: Hematology/Oncology Consulting Physician: Holly VITALE, Solo Reason for Consult: Followup heme and potential malignancy workup Hospital Course: 82-year-old pleasant woman from home, past medical history significant for non- insulin-dependent diabetes mellitus, hyperlipidemia, brought in by daughter for evaluation of left lower extremity swelling and inability to ambulate. Patient states that since the past 1 months she has been noticing worsening lower extremity swelling which has caused her to become essentially bedbound. Prior to a month ago she was able to ambulate to the bathroom however since she has become bedbound she has been using depends purely because she is unable to ambulate. On admission, she denies any shortness of breath, chest pain, palpitations, dysuria, fever, chills, abdominal pain. She does states that she is able to control her bowel and bladder, denies decreased p.o. intake poor appetite, history of prior clots in the past or family history of clots. While in house patient was evaluated by vascular surgery and determined to not be a surgical candidate. After another day and transitioning the patient to oral anti-coagulants, the patient was found to be suitable for home discharge by physical therapy and subsequently discharged. Problem list/plan: Left lower extremity DVTlikely unprovoked -Converted now to Eliquis for outpatient, planned 3 months duration intrathoracic disease Diabetes -Converted to home diabetes medications upon discharge Hypertension DVT prophylaxis: IV heparin, then converted to oral Eliquis Diabetic diet consistent carbohydrate 3 Patient is DNR/DNI Allergies: Coded Allergies: Sulfa (Sulfonamide Antibiotics) (UNKNOWN PER PT 02/10/16) Pertinent Lab Results: SERVICE DATE: 12/29/17 EXAM TYPE: RAD - XRY-PORTABLE CHEST XRAY IMPRESSION: Cardiomegaly without acute intrathoracic disease. SERVICE DATE: 12/30/17 EXAM TYPE: US - US-EXT BILAT VENOUS DOPPLER IMPRESSION: 1. Extensive deep venous thrombosis in the left lower extremity extending from the common femoral vein down to the calf veins. 2. No evidence of deep venous thrombosis in the right lower extremity. Disposition Summary Disposition Principal Diagnosis: Spontaneous unprovoked deep vein thrombosis Additional Diagnosis: Diabetes (present on admission) Discharge Disposition: home health services Discharge Instructions General Discharge Information Code Status: Do Not Resucitate Patient's Diet: Regular as tolerated Patient's Activity: Regular as tolerated Follow-Up Instructions/Appts: - Please follow up with your primary care physician within 1-2 weeks of discharge. Inform your primary care physician of this admission to [facility]. -Please followup with Dr. Solo Barrera in hematology within 2 weeks - Continue your current medications per discharge instructions. - Please watch for these problems: Fever, Chills, Nausea, Vomiting, Shortness of Breath, Productive Cough, Chest Pain/Discomfort, Abdominal Pain, Active Bleeding or Bloody urine/stool. Medications at Discharge Discharge Medications: Continue taking these medications: Sitagliptin Phosphate (Januvia) 100 MG TABLET 1 Tablet ORAL DAILY Qty = 30 Comments: NOT TAKEN IN HOSPITAL, INSULIN ADMINISTERED Metformin HCl (Metformin HCl ER) 500 MG TAB.ER.24H 1 Tablet ORAL DAILY Qty = 30 Comments: NOT TAKEN IN HOSPITAL Atorvastatin Calcium (Atorvastatin Calcium) 40 MG TABLET 1 Tablet ORAL DAILY Qty = 90 Comments: Last Taken: 01/01/18 Time: 0900 AM Start taking the following new medications: Apixaban (Eliquis) 5 MG TABLET 5 Milligram ORAL TWICE DAILY Qty = 74 Refills = 2 Instructions: Take 10 mg twice a day for 7 days, 01/02-01/08 then switch to 5 mg twice a day. Comments: Last Taken: 01/01/18 Time: 0900 AM Copies To: Holly VITALE,Solo; Romana VITALE,Shay Paris
--- NOTE | 2018-01-01 22:49 | Patient Discharge Instructions ---
Discharge Instructions General Discharge Information Special Instructions: - Please follow up with your primary care physician within 1-2 weeks of discharge. Inform your primary care physician of this admission to [facility]. -Please followup with Dr. Solo Barrera in hematology within 2 weeks - Continue your current medications per discharge instructions. - Please watch for these problems: Fever, Chills, Nausea, Vomiting, Shortness of Breath, Productive Cough, Chest Pain/Discomfort, Abdominal Pain, Active Bleeding or Bloody urine/stool. Diet Continue normal diet: Yes Activity Full Activity/No Limits: No (as tolerated) Acute Coronary Syndrome Inclusion Criteria At DC or during hospital stay patient has or had the following: ACS DIAGNOSIS No Discharge Core Measures Meds if any: Prescribed or Continued at Discharge Meds if any: NOT Prescribed or Continued at Discharge Congestive Heart Failure Inclusion Criteria At DC or during hospital stay patient has or had the following: CHF DIAGNOSIS No Discharge Core Measures Meds if any: Prescribed or Continued at Discharge Meds if any: NOT Prescribed or Continued at Discharge Cerebrovascular accident Inclusion Criteria At DC or during hospital stay patient has or had the following: CVA/TIA Diagnosis No Discharge Core Measures Meds if any: Prescribed or Continued at Discharge Meds if any: NOT Prescribed or Continued at Discharge Venous thromboembolism Inclusion Criteria VTE Diagnosis Yes VTE Type Deep Venous Thrombosis VTE Confirmed by (Test) EXT BILATERAL VENOUS DOPP Discharge Core Measures - Per Current guidelines, there needs to be overlap - treatment for the first 5 days of Warfarin therapy. - If discharged on Warfarin prior to 5 days of - overlap therapy, the patient will need to be - assessed for post discharge needs including - *Post discharge parental anticoagulation - *Warfarin and/or parental anticoagulation education - *Follow up date to check INR post discharge At least 5 days overlap therapy as Inpatient No Meds if any: Prescribed or Continued at Discharge Warfarin No Overlap Therapy No Note: Overlap Therapy is Warfarin and Anticoagulant Meds if any: NOT Prescribed or Continued at Discharge
[2018-01-02] MEDS ORDERED: COMPRESSION STOCKING (15:32)
== END 2018-01-01 13:18 | DRG 301 ==
LOC: ERH 20:32 → ERHI 12-30 09:43 → 2NA 12-30 09:43 → ENRESERV 12-30 11:18 → ENTRNSPT 12-30 12:02 → EDTRNSPTSTS 12-30 12:25 → 2NA 12-30 12:27 → EDTRNSPT 12-30 12:27 → CMPTRNSPT 12-30 12:49 → ENPENDDIS 01-01 11:36 → ENTRNSPT 01-01 12:55 → EDTRNSPT 01-01 13:14 → EDTRNSPTSTS 01-01 13:14 → 2NA 01-01 13:18 → CMPTRNSPT 01-01 13:27
PROVIDERS: Emergency Medicine; General Practice; Internal Medicine; Pediatrics
PROC: 3E033GC Introduction of Other Therapeutic Substance into Peripheral Vein, Percutaneous Approach (ICD-10-PCS; principal; 2017-12-31)
DX: I82.412 Acute embolism and thrombosis of left femoral vein (principal); I82.4Z2 Acute embolism and thrombosis of unspecified deep veins of left distal lower extremity; I10 Essential (primary) hypertension; E78.5 Hyperlipidemia, unspecified; K21.9 Gastro-esophageal reflux disease without esophagitis; E11.9 Type 2 diabetes mellitus without complications; Z79.84 Long term (current) use of oral hypoglycemic drugs; E87.5 Hyperkalemia; Z66 Do not resuscitate; R60.0 Localized edema; Z74.01 Bed confinement status; Z88.2 Allergy status to sulfonamides; R32 Unspecified urinary incontinence
CPT/HCPCS: 2NASP; 36415; 36592; 71045; 81001; 82436; 87086; 93005; 93010; 93970; 97116-GO; 97161-GP; 97530-GO; J0696; J1644